=== PATIENT | female | born 1965 | race Caucasian/White ===

== ENCOUNTER 2022-02-08 17:03 | Emergency (ER) | payer OTHER ==
[~2022-02-08] VITALS: Ht 210.8 cm; Wt 73.9 kg
[2022-02-08] MEDS ORDERED: ACID REDUCER20 M1 PO (17:22)
[2022-02-08] MEDS ORDERED: CRESTOR10 MG PO (17:23)
== END 2022-02-08 22:16 | disposition home or self-care (01) ==
LOC: ER 17:03
DX: K58.9 Irritable bowel syndrome, unspecified (principal); Z91.018 Allergy to other foods

== ENCOUNTER → 2023-02-22 | Emergency (ER) | payer OTHER ==
[~2023-02-22] VITALS: Ht 162.6 cm; Wt 70.3 kg
[~2023-02-22] MED LIST: ACID REDUCER20 M1 PO; CRESTOR10 MG PO
== END | disposition left against medical advice (07) ==
LOC: ER 16:04
DX: Z53.21 Procedure and treatment not carried out due to patient leaving prior to being seen by health care provider (principal)

== ENCOUNTER 2023-11-25 08:23 | Emergency (ER) | payer OTHER ==
[~2023-11-25] VITALS: Ht 160 cm; Wt 70.3 kg
[2023-11-25] MEDS ORDERED: WELLBUTRIN XL150 M1 (08:31)
[2023-11-25] MEDS ORDERED: RAMIPRIL5 MG (08:31)
[2023-11-25 09:12] LABS: HEMATOCRIT 41.2 % (36.0-45.00); HEMOGLOBIN 13.9 g/dL (12.0-15.00); MEAN CELL VOLUME 87.6 fL (80.00-100.00); MEAN CORPUSCULAR HEMOGLOBIN 29.6 pg (27.00-32.0); MEAN CORPUSCULAR HGB CONC 33.8 g/dl (32.0-36.0); PLATELET COUNT 307 K/uL (150-450); RED CELL DISTRIBUTION WIDTH 12.8 % (11.5-14.5)
[2023-11-25 09:58] LABS: CALCIUM 9.5 mg/dL (8.5-10.1); CREATININE SERUM 0.88 mg/dL (0.55-1.02); GFR 66.23; POTASSIUM 3.58 mEq/L (3.5-5.1)
[2023-11-25 10:31] LABS: PH,URINE 6.5 (5.0-8.0); URINE APPEARANCE Clear; URINE BILIRRUBIN Negative (NEGATIVE); URINE BLOOD Negative; URINE COLOR Yellow; URINE GLUCOSE Negative (NEGATIVE); URINE KETONE Negative (NEGATIVE); URINE LEUKOCYTE Negative; URINE NITRATE Negative; URINE PROTEIN Negative (NEGATIVE); URINE UROBILINOGEN 0.2 E.U./dl
[2023-11-25 10:33] LABS: URINE EPITHELIAL CELLS 1.8 uL (0.0-38.8); URINE RBC 3.3 uL (0.0-20.8)
[2023-11-25 10:37] LABS: URINE BACTERIA 0 uL (0.0-1933); URINE WBC 0.9 uL (0.0-23.2)
[2023-11-25] MEDS ORDERED: 0.9 % SODIUM CHLORIDE 1,000 ML IV SCH (12:00)
== END 2023-11-25 16:07 | disposition home or self-care (01) ==
LOC: ER 08:24
PROVIDERS: Emergency Medicine
DX: R10.9 Unspecified abdominal pain (principal); R19.7 Diarrhea, unspecified; I10 Essential (primary) hypertension; Z91.018 Allergy to other foods
CPT/HCPCS: 36415; 74177; Q9965

== ENCOUNTER 2024-01-18 09:28 | Emergency (ER) | payer OTHER ==
[~2024-01-18] VITALS: Ht 160 cm; Wt 70.3 kg
[~2024-01-18 09:28] MED LIST changes: +RAMIPRIL5 MG; +WELLBUTRIN XL150 M1
[2024-01-18] MEDS ORDERED: PROTONIX20 MG PO (09:53)
[2024-01-18] MEDS ORDERED: KETOROLAC TROMETHAMINE 30 MG VIAL IM STA (10:11)
[2024-01-18 10:30] LABS: HEMATOCRIT 37.6 % (36.0-45.00); MEAN CELL VOLUME 86.3 fL (80.00-100.00); MEAN CORPUSCULAR HEMOGLOBIN 29.9 pg (27.00-32.0); MEAN CORPUSCULAR HGB CONC 34.7 g/dl (32.0-36.0); PLATELET COUNT 264 K/uL (150-450); RED BLOOD COUNT 4.36 M/uL (4.00-6.00)
[2024-01-18 11:07] LABS: PH,URINE 5.5 (5.0-8.0); URINE APPEARANCE Clear; URINE BILIRRUBIN Negative (NEGATIVE); URINE BLOOD Negative; URINE COLOR Yellow; URINE GLUCOSE Negative (NEGATIVE); URINE KETONE Negative (NEGATIVE); URINE LEUKOCYTE Negative; URINE NITRATE Negative; URINE PROTEIN Negative (NEGATIVE); URINE UROBILINOGEN 0.2 E.U./dl
[2024-01-18 11:11] LABS: URINE BACTERIA 13.4 uL (0.0-1933); URINE EPITHELIAL CELLS 13.2 uL (0.0-38.8); URINE RBC 14.1 uL (0.0-20.8); URINE WBC 5.8 uL (0.0-23.2)
[2024-01-18 11:41] LABS: CALCIUM 9.5 mg/dL (8.5-10.1); CREATININE SERUM 0.78 mg/dL (0.55-1.02); GFR 76.12; POTASSIUM 4.08 mEq/L (3.5-5.1)
[2024-01-18] MEDS ORDERED: FAMOTIDINE/PF 20 MG/2 ML VIAL IV PUSH STA (12:14)
== END 2024-01-18 14:52 | disposition home or self-care (01) ==
LOC: ER 09:30
PROVIDERS: General Practice
DX: R53.1 Weakness (principal); Z91.014 Allergy to mammalian meats